=== PATIENT | female | born 1950 | race African-American/Black ===

== ENCOUNTER → 2017-04-11 13:16 | Outpatient (CLI) | payer MEDICARE ==
[2015-08-05 08:29] VITALS: BMI 31.1
[~2017-04-11 13:16] MED LIST: ALEVE220 MG PO; BAYER CHEWABLE81 MG PO; BENICAR HCT 20-1 TA1 PO; CALCIUM 500 + D1 TAB PO; HYDROCODONE-APA1 TAB PO; LIPITOR40 MG PO; MULTIPLE VITAMI1 TA1 PO; OMEGA 3 FISH OI1 CAP PO; PROBIOTIC1 EAC1 PO; SYNTHROID75 MCG PO; VIVELLE-DO1 PATCH.B1 TD
== END | disposition home or self-care (01) ==
LOC: D.MAMMO 13:16
DX: Z12.31 Encounter for screening mammogram for malignant neoplasm of breast (principal)

== ENCOUNTER 2018-03-31 08:45 | Inpatient (IN) | payer MEDICARE ==
[2018-03-29 15:17] LABS: HEMATOCRIT 39.2 % (36.0-48.0); HEMOGLOBIN 13.4 g/dL (12-16); MCH 29.8 pg (26.0-34.0); MCHC 34.2 g/dL (31.0-37.0); MCV 87.1 fL (80.0-100.0); MEAN PLATELET VOLUME 9.1 fL (7.4-10.4); RBC 4.5 10x6/uL (4.00-5.40); RDW 13.9 % (11.5-14.5); WBC 6.1 10x3/uL (4.8-10.8)
[2018-03-29 15:41] LABS: CALCIUM 9.5 mg/dL (8.5-10.1); CARBON DIOXIDE 31.1 mmol/L (21.0-32.0); POTASSIUM - SERUM 4.1 mmol/L (3.5-5.1)
[~2018-03-31] VITALS: Ht 162.6 cm; Wt 83.8 kg
--- NOTE | ~2018-03-31 | OP ---
PATIENT NAME: K[facility]ODE LA[facility] MEDICAL RECORD: [id number] :48 LOCATION[facility] [id number].2309 ADMISSION DATE:03/31/18 SURGEON: KIRAN MONZON MD DATE OF OPERATION: 03/31/2018 SURGEON: Kiran Monzon MD UPKEEP WORKER: Kiran Griffin MD ANESTHESIA: General anesthesia. DIAGNOSES: Diverticulitis with adhesion to the bladder, intraoperative bladder perforation. PROCEDURE: Three layer bladder closure. FINDINGS: Transverse laceration of the dome of the bladder, about 4 cm in length. Ureters are intact. BLOOD LOSS: Minimal. CLINICAL HISTORY: This is a 68-year-old female whom Dr. Griffin is performing surgery upon for a hemicolectomy for sigmoid diverticulitis with intra-abdominal abscesses and adhesions. During the dissection, he found that the bladder has been opened up. He asked me to come in to the OR for a consultation. The ureters are identified and they are not anywhere near the site of injury. The injury is on the dome of the bladder, about 4 cm in length. There is a flap along the posterior wall of the bladder where part of the mucosa has been denuded. Two layer closure was initially started. The first layer was with running 3-0 Vicryl and this took full-thickness from the serosa to mucosa and then from mucosa to the serosa on the opposite side. Once this was tied down, then the second layer of 3-0 Vicryl was used to create Lembert sutures. This was also done in running fashion. This brought the serosa to the opposite serosa. This left some of the excess material on the flap and this was overlaid on the laceration site and tacked to the serosa on the opposite side with a third layer of sutures. We then tested for water tightness. The Car catheter was irrigated with 180 mL of normal saline. We did find one site of leakage and this was stopped with a [id number] of 3-0 Vicryl. No further leakage was found. At this point, Dr. Griffin will continue on with his surgery. He will leave a Diogenes-Interiano drain at the end of the case to make sure that we do not have any leakage of urine that accumulates in the peritoneal cavity. Also, in about 10 days' time, the patient will have a cystogram to verify that the bladder was intact before the Car catheter gets removed. TRANSINT:[id number] Voice Confirmation ID: [id number] DOCUMENT ID: [id number] KIRAN MONZON MD at 1150 CC: [id number] DICTATION DATE: 03/31/181658 DUPLEX TRIMMER: 03/31/18 1745 ADM IN [facility] [address] [place] [address]
--- NOTE | ~2018-03-31 | OP ---
PATIENT NAME: [facility]ODE [facility] MEDICAL RECORD: [id number] :48 LOCATION:[id number] ADMISSION DATE:03/31/18 SURGEON: YASSINE COFFEY MD DATE OF OPERATION: 03/31/2018 PREOPERATIVE DIAGNOSES: 1. History of recurrent severe diverticulitis. 2. Endoscopically unresectable hepatic flexure polyp. POSTOPERATIVE DIAGNOSES: 1. History of recurrent severe diverticulitis. 2. Endoscopically unresectable hepatic flexure polyp. 3. Markedly severe diverticulosis involving the entire descending colon as well as the sigmoid colon. 4. Bladder injury, iatrogenic. PROCEDURES: Attempted HALS colectomy with conversion to subtotal colectomy and repair of bladder injury. SURGEON: Yassine Coffey MD UROLOGIST: Yassine Monzon MD, was the urologist and performed the repair of the bladder injury. I assisted him with that portion of the operation. BLOOD LOSS: Please see the anesthesia sheet. COMPLICATIONS: None. The risks, possible complications, and alternatives to the procedure were explained to the patient. She elects to proceed. OPERATIVE COURSE: The patient was conveyed the operating room electively on 03/31/2018. General anesthesia was induced by the anesthesia staff. The abdomen was sterilely prepped and draped. A transverse incision was accomplished in the right side of the abdomen. I sharply dissected down through skin and subcutaneous tissue. The external oblique aponeurosis was then opened along the direction of its fibers. I bluntly dissected down through the internal oblique and transversus abdominis muscle layers. The peritoneal cavity was entered sharply. An Lambert retractor was placed. Through the Lambert retractor, I was able to incise the right white line of Toldt. I was able to mobilize the right colon. I was able to mobilize the hepatic flexure by dividing the retroperitoneal attachments. I was able to deliver the right colon. I stapled across the end of the ileum with a KARAN-75 stapler. I then chose the distal extent of my resection to be the transverse colon, just proximal to the middle colic artery. I stapled across the colon here with a KARAN-75 stapler. I swept down the duodenum. The right ureter was swept down for protection and was undamaged during the operation. The interposed mesentery was then taken down with the EnSeal device. The specimen was then opened up on the back table. I did not identify the polyp within the specimen. I inserted the Gelport. I palpated the abdomen. I could feel really severe chronic diverticular disease involving the descending colon as well as the sigmoid colon. On the operative specimen, I noted acute diverticulitis present even in the right side of the colon. I thought it was in the patient's best interest to perform a subtotal colectomy, removing all of the OPERATIVE REPORT [id number] [place] E diverticular disease. I extended my transverse incision across the entire abdomen. I dissected down through skin and subcutaneous tissue and incised the anterior fascia transversely. I then incised the muscular layers transversely and into the peritoneal cavity and it was incised transversely as well. A large Lambert retractor was placed. I then proceeded with my subtotal colectomy. I used the EnSeal device to takedown the omentum, which was sent as a separate specimen. I then chose the distal extent of my resection to be the top of the rectum where the tinea splayed out. A window was created in the mesorectum. I stapled across the junction of sigmoid colon and rectum here with a KARAN-75 stapler. It was at this point when I pulled up on the sigmoid colon, which was scarred down to the bladder. When I did this, essentially the top of the bladder ripped off. There was no real plane that I could have developed between the sigmoid colon and the bladder. They were severely scarred together. I divided the junction of the sigmoid colon and the rectum with a KARAN-75 stapler. I entered the inner sigmoid fossa. I incised the left white line of Toldt. It was at this point that Dr. Monzon came to the operating room and scrubbed in. He performed the bladder reconstruction and this is dictated separately. My participation in the bladder repair was minor and I was an hr assistant. He then scrubbed out. He instructed me to leave a drain in place at the end of the procedure. I then began to takedown the mesentery of the transverse colon with the EnSeal device. I took down the mesentery of the descending colon with the EnSeal device. I took down the mesentery of the sigmoid colon with the EnSeal device. The subtotal colectomy specimen was then sent to pathology. I placed the distal ileum and apposition to the rectum with the antimesenteric borders being sutured together with interrupted 3-0 Vicryls. A small enterotomy and small proctotomy were accomplished. Anvils of KARAN-75 stapler were advanced and fired. The resulting enterorectal defect was closed with a single firing of the TA-60 stapler. I ensured that the small bowel was not twisted on its mesentery. There was no bleeding. I irrigated and aspirated. A 19-[place]ank[place] drain was brought out through an incision in the left lower quadrant. The drain was sutured to skin with a 2-0 nylon. This was placed near the bladder repair. The muscle and fascia were closed with running looped #1 PDS from the right and the left. The subcutaneous tissues were approximated with interrupted 3-0 Vicryls. The skin was approximated with metallic clips. A sterile dressing was applied. The patient was then extubated and conveyed to postanesthesia care unit, where she was in stable condition. TRANSINT:[id number] Voice Confirmation ID: [id number] DOCUMENT ID: [id number] OPERATIVE REPORT [id number] KAYODE LA[facility] ROBERT MD at 1415 CC: BENI VALENCIA DO, YASSINE MONZON MD and SARBJIT PHAM [id number] DICTATION DATE: 04/24/181728 SUPERVISOR RESEARCH SHOP: 04/25/18 0008 DIS IN 04/07/18 [place] [id number] [place] [id number]
[~2018-03-31 08:45] MED LIST changes: -BENICAR HCT 20-1 TA1 PO; +BENICAR5 MG PO; +ESTRACE 0.5 MG0.5 MG PO
[2018-03-31 10:13] VITALS: BP 139/64; BMI 31.1
[2018-03-31 16:24] LABS: HEMATOCRIT 30.8 % (36.0-48.0); HEMOGLOBIN 10.3 g/dL (12-16)
[2018-03-31 19:00] VITALS: BP 112/58
[2018-03-31 20:00] VITALS: BP 118/65
[2018-03-31 21:00] VITALS: BP 113/61
[2018-03-31 22:00] VITALS: BP 107/57
[2018-03-31 23:00] VITALS: BP 118/68
[2018-04-01] VITALS (24 sets, daily range): BP systolic 84–124; BP diastolic 42–65; Ht 162.6 cm; Wt 83.8 kg
[2018-04-01 03:11] LABS: BASOPHILS 0 % (0-2); EOSINOPHILS 0 % (0-7); IMMATURE GRANULOCYTES 0.3 % (0-5); LYMPHOCYTES 2.2 % (15-50); MCH 29.4 pg (26.0-34.0); MCHC 34.2 g/dL (31.0-37.0); MCV 85.8 fL (80.0-100.0); MEAN PLATELET VOLUME 9.2 fL (7.4-10.4); MONOCYTES 8.3 % (2-11); NEUTROPHILS 89.2 % (40-80); PLATELET COUNT 232 10x3/uL (130-400); RBC 4.73 10x6/uL (4.00-5.40); RDW 14.1 % (11.5-14.5); WBC 11.5 10x3/uL (4.8-10.8)
[2018-04-01 03:13] LABS: HEMATOCRIT 40.6 % (36.0-48.0); HEMOGLOBIN 13.9 g/dL (12-16)
[2018-04-01 03:21] LABS: ALBUMIN 2.6 g/dL (3.4-5.0); ANION GAP 15.9 mmol/L (8-16); BILIRUBIN - TOTAL 0.63 mg/dL (0.2-1.3); CALCIUM 8.2 mg/dL (8.5-10.1); CARBON DIOXIDE 25.2 mmol/L (21.0-32.0); CREATININE - SERUM 1.5 mg/dL (0.6-1.3); MAGNESIUM - SERUM 1.6 mg/dL (1.8-2.4); PHOSPHOROUS 3.1 mg/dL (2.5-4.9); POTASSIUM - SERUM 4.1 mmol/L (3.5-5.1); PROTEIN - SERUM 5.6 g/dL (6.4-8.2)
[2018-04-02] VITALS (25 sets, daily range): BP systolic 87–132; BP diastolic 43–65
[2018-04-03] VITALS (17 sets, daily range): BP systolic 111–163; BP diastolic 52–85
[2018-04-04 04:27] VITALS: BP 153/75
[2018-04-04 07:52] VITALS: BP 157/38
[2018-04-04 12:34] VITALS: BP 125/66
[2018-04-04 22:10] VITALS: BP 155/78
[2018-04-05 05:46] VITALS: BP 163/78
[2018-04-05 08:26] VITALS: BP 106/66
[2018-04-05 13:47] VITALS: BP 148/77
[2018-04-05 16:02] VITALS: BP 149/73
[2018-04-05 22:57] VITALS: BP 116/67
[2018-04-06 05:41] VITALS: BP 132/69
[2018-04-06 10:48] VITALS: BP 153/80
[2018-04-06 12:40] VITALS: BP 143/70
[2018-04-06 13:34] LABS: BASOPHILS 0.1 % (0-2); EOSINOPHILS 1.8 % (0-7); HEMATOCRIT 35.5 % (36.0-48.0); HEMOGLOBIN 12.1 g/dL (12-16); IMMATURE GRANULOCYTES 1.9 % (0-5); LYMPHOCYTES 9.4 % (15-50); MCH 29.3 pg (26.0-34.0); MCHC 34.1 g/dL (31.0-37.0); MEAN PLATELET VOLUME 8.8 fL (7.4-10.4); MONOCYTES 7.5 % (2-11); NEUTROPHILS 79.3 % (40-80); PLATELET COUNT 265 10x3/uL (130-400); RBC 4.13 10x6/uL (4.00-5.40); RDW 13.8 % (11.5-14.5); WBC 9.3 10x3/uL (4.8-10.8)
[2018-04-06 14:12] LABS: ALBUMIN 2.3 g/dL (3.4-5.0); ALKALINE PHOSPHATASE 415 U/L (46-116); ALT (SGPT) 151 U/L (10-68); BILIRUBIN - TOTAL 1.01 mg/dL (0.2-1.3); CALC OSMOLALITY 280 mosm/kg (275-300); CALCIUM 8.6 mg/dL (8.5-10.1); CARBON DIOXIDE 26.6 mmol/L (21.0-32.0); CHLORIDE - SERUM 104 mmol/L (98-107); CREATININE - SERUM 0.8 mg/dL (0.6-1.3); GLUCOSE 95 mg/dL (74-106); POTASSIUM - SERUM 3.5 mmol/L (3.5-5.1); PROTEIN - SERUM 5.6 g/dL (6.4-8.2); SODIUM 141 mmol/L (136-145); UREA NITROGEN 12 mg/dL (7-18); eGFR NON AFRICAN AMERICAN 75 mL/min (90-120)
[2018-04-06 20:00] VITALS: BP 154/75
[2018-04-07 04:00] VITALS: BP 151/73
[2018-04-07 08:02] VITALS: BP 156/72
[2018-04-07] MEDS ORDERED: Lomotil PO (11:19)
[2018-04-07] MEDS ORDERED: DILAUDID2 MG PO (11:20)
[2018-04-07] MEDS ORDERED: ZOFRAN4 MG PO (11:21)
[2018-04-07 11:46] VITALS: BP 151/72
== END 2018-04-07 18:27 | disposition home health service (06) | DRG 330 ==
LOC: D.SDCHOLD 08:45 → D.MS 09:30 → D.ICU 09:30 → D.SDCHOLD 11:30 → D.MS 19:21 → D.ICU 19:33 → D.MS 04-03 18:51
PROVIDERS: Anesthesiology; Family Medicine; Surgery
PROC: 0DBU0ZZ Excision of Omentum, Open Approach (ICD-10-PCS; 2018-03-31)
PROC: 0TQB0ZZ Repair Bladder, Open Approach (ICD-10-PCS; 2018-03-31)
PROC: 0DBM0ZZ Excision of Descending Colon, Open Approach (ICD-10-PCS; principal; 2018-03-31 11:30)
PROC: 0DBL0ZZ Excision of Transverse Colon, Open Approach (ICD-10-PCS; 2018-03-31 11:30)
PROC: 0DBN0ZZ Excision of Sigmoid Colon, Open Approach (ICD-10-PCS; 2018-03-31 11:30)
DX: K57.20 Diverticulitis of large intestine with perforation and abscess without bleeding (principal); N99.71 Accidental puncture and laceration of a genitourinary system organ or structure during a genitourinary system procedure; N32.89 Other specified disorders of bladder; R19.7 Diarrhea, unspecified

== ENCOUNTER → 2018-04-14 08:07 | Outpatient (CLI) | payer MEDICARE ==
[2018-04-01 15:53] VITALS: BMI 30.9
[~2018-04-14 08:07] MED LIST changes: +DILAUDID2 MG PO; +Lomotil PO; +ZOFRAN4 MG PO
== END | disposition home or self-care (01) ==
LOC: D.RAD 04-10 09:00
DX: S37.23XA Laceration of bladder, initial encounter (principal); X58.XXXA Exposure to other specified factors, initial encounter

== ENCOUNTER → 2018-08-24 12:10 | Outpatient (CLI) | payer MEDICARE ==
[2018-04-01 15:53] VITALS: BMI 30.9
--- NOTE | 2018-08-28 11:46 | ST ---
PATIENT:KAYODE LAKE MEDICAL RECORD: [id number] SEX: F LOCATION:[facility] ORDER #: ADMISSION DATE: 08/24/18 AGE OF PATIENT: 68 REFERRING PHYSICIAN: INTERPRETING PHYSICIAN: ABAD SEVERINO MD DATE OF SERVICE: 08/24/2018 PROCEDURE: Stress test. INDICATIONS: Chest discomfort, hypertension, hyperlipidemia. She was exercised on standard Lexiscan protocol with 33 mCi of sestamibi injected at peak stress, 11 mCi were used previously for rest images. FINDINGS: Gated SPECT reveals preserved ejection fraction at 73% with good wall motion and thickening and brightening throughout all segments. SPECT imaging Cardiolite was used as myocardial fusion agent. There is homogeneous uptake throughout all segments at rest and stress with no evidence of inducible ischemia or previous infarction. OVERALL IMPRESSION: 1. This is a normal nuclear stress test with no evidence of inducible ischemia or previous infarction. 2. Gated SPECT reveals a preserved ejection fraction at 73%. In this patient with ongoing symptomatology, the current scan does not suggest the presence of hemodynamically significant coronary artery disease. Evaluate noncardiac etiology of chest pain. TRANSINT:[id number] Voice Confirmation ID: [id number] DOCUMENT ID: [id number] ABAD SEVERINO MD at 1146 CC: [id number] DICTATION DATE: 08/25/18 1345 ENROLLMENT MANAGEMENT MANAGER: 08/26/18 0847 DEP CLI 08/24/[address] [id number]
== END | disposition home or self-care (01) ==
LOC: D.HCCARDIO 12:10
DX: R07.9 Chest pain, unspecified (principal)

== ENCOUNTER → 2020-02-14 13:15 | Outpatient (CLI) | payer MEDICARE ==
[2018-04-01 15:53] VITALS: BMI 30.9
--- NOTE | 2020-02-18 09:51 | EC ---
PATIENT:KAYODE LAKE DATE OF SERVICE: 02/14/20 SEX: F MEDICAL RECORD: [id number] DATE OF : 48 LOCATION:[facility] AGE OF PATIENT: 69 ADMISSION DATE: 02/14/20 REFERRING PHYSICIAN: INTERPRETING PHYSICIAN: SARBJIT PHAM MD ECHOCARDIOGRAM REPORT ECHO CHARGES 4 ECHO COMPLETE Date: 02/14/20 CLINICAL DIAGNOSIS: HTN/MITRAL REGURG ECHOCARDIOGRAPHIC MEASUREMENTS (adult normal given) AC root (d.<3.7cm) 3.3 cm LV Septum d (<1.2 cm> 1.4 cm Valve Excursion 1.8 cm LV Septum (systole) 1.6 cm Left Atria (s.<4.0cm> 4.0 cm LVPW d(<1.2cm) 1.6 cm RV (d.<2.3cm) 4.3 cm LVPW (sytole) 1.9 cm LV diastole(<5.6CM) 3.7 cm MV E-F(>70mm/sec) cm LV systole 1.9 cm LVOT Diameter 1.9 cm MV exc.(>10mm) 1.0 cm Est.ejection fraction (50-75%) % DOPPLER: LVIT cm/sec A 116.0cm/sec E 86.0 cm/sec LA cm/sec RVSP 30 mmHg LVOT 123 cm/sec AOP1/2T m/s Asc. Ao 162 cm/sec RVOT 83 cm/sec RA cm/sec PA 123 cm/sec AV Gradient Peak 10.48mmHg AV Mean 5.86 mmHg AV Area 2.1 cm MV Gradient Peak 8.99 mmHg MV Mean 3.18 mmHg MV Area cm COMMENTS: Group Sales Coordinator: 2 ANTONIO TREVIZO Bmw Service Technician: 3 Dr. Florian TAPE# PACS Pericardial Effusion N DATE OF SERVICE: Adequate 2D echo, color flow, spectral Doppler, and M-Mode. LVH is present. LV internal dimension is normal. Wall motion is normal. EF is greater than or equal to 55%. Aortic valve is tricuspid. No evidence of stenosis by Doppler interrogation. Left atrium is normal at 4.0. Mitral valve shows no prolapse. Trace MR. Right-sided chambers are grossly normal. Mild TR. ECHOCARDIOGRAM REPORT [id number] [facility] TRANSINT:[id number] Voice Confirmation ID: [id number] DOCUMENT ID: [id number] SARBJIT PHAM MD at 0951 CC: [id number] DICTATION DATE: 02/15/20916 LEVEL VIAL INSPECTOR AND TESTER: 02/15/20 2109 [facility] CLI 02/14/20 [place] [id number] [place] [id number]
--- NOTE | 2020-02-18 09:51 | EC ---
PATIENT:KAYODE LAKE DATE OF SERVICE: 02/14/20 SEX: F MEDICAL RECORD: [id number] DATE OF : 48 LOCATION:D[facility] AGE OF PATIENT: 69 ADMISSION DATE: 02/14/20 REFERRING PHYSICIAN: INTERPRETING PHYSICIAN: SARBJIT PHAM MD ECHOCARDIOGRAM REPORT ECHO CHARGES 4 ECHO COMPLETE Date: 02/14/20 CLINICAL DIAGNOSIS: HTN/MITRAL REGURG ECHOCARDIOGRAPHIC MEASUREMENTS (adult normal given) AC root (d.<3.7cm) 3.3 cm LV Septum d (<1.2 cm> 1.4 cm Valve Excursion 1.8 cm LV Septum (systole) 1.6 cm Left Atria (s.<4.0cm> 4.0 cm LVPW d(<1.2cm) 1.6 cm RV (d.<2.3cm) 4.3 cm LVPW (sytole) 1.9 cm LV diastole(<5.6CM) 3.7 cm MV E-F(>70mm/sec) cm LV systole 1.9 cm LVOT Diameter 1.9 cm MV exc.(>10mm) 1.0 cm Est.ejection fraction (50-75%) % DOPPLER: LVIT cm/sec A 116.0cm/sec E 86.0 cm/sec LA cm/sec RVSP 30 mmHg LVOT 123 cm/sec AOP1/2T m/s Asc. Ao 162 cm/sec RVOT 83 cm/sec RA cm/sec PA 123 cm/sec AV Gradient Peak 10.48mmHg AV Mean 5.86 mmHg AV Area 2.1 cm MV Gradient Peak 8.99 mmHg MV Mean 3.18 mmHg MV Area cm COMMENTS: Chain Pegger: 2 ANTONIO TREVIZO Financial Wellness Coach: 3 Dr. Florian TAPE# PACS Pericardial Effusion N DATE OF SERVICE: Adequate 2D, color flow imaging, spectral Doppler, and M-Mode. LVH is present. LV internal dimension is normal. Wall motion is normal. EF is greater than or equal to 55%. Aortic valve is tricuspid. No evidence of stenosis by Doppler interrogation. Left atrium is normal at 4.0. Mitral valve shows no prolapse. Trace MR. Right-sided chambers are grossly normal. Trace TR. ECHOCARDIOGRAM REPORT [id number] [facility] [place] TRANSINT:[id number] Voice Confirmation ID: [id number] DOCUMENT ID: [id number] SARBJIT PHAM MD at 0951 CC: [id number] DICTATION DATE: 02/15/20911 LINES TENDER: 02/15/20 2107 [facility] CLI 02/14/20 [place] [id number] [place] [id number]
== END | disposition home or self-care (01) ==
LOC: D.HCCECHO 02-11 10:30
PROVIDERS: ATTEND Internal Medicine Interventional Cardiology
DX: I10 Essential (primary) hypertension (principal)